=== PATIENT | male | born 1945 | race Two or more races ===

== ENCOUNTER 2019-08-21 12:00 | Outpatient (CLI) | payer BC | END 2019-08-21 23:59 | disposition home or self-care (01) | LOC: WOU 12:00 | PROVIDERS: ATTEND Specialist | DX: K60.2 Anal fissure, unspecified (principal); R53.2 Functional quadriplegia; I25.10 Atherosclerotic heart disease of native coronary artery without angina pectoris; M16.0 Bilateral primary osteoarthritis of hip | CPT/HCPCS: G0463 ==